=== PATIENT | female | born 1955 | race African-American/Black ===

== ENCOUNTER 2019-10-01 11:15 | Outpatient (CLI) | payer MEDICARE, SELFPAY ==
--- NOTE | ~2019-10-01 | US_ITS ---
EXAMINATION: US venous doppler [facility] EXAM DATE: 10/01/2019 11:40 INDICATION: Left leg pain and swelling. TECHNIQUE: Multiple grayscale, color flow and Doppler images of the left lower extremity deep venous system were obtained and reviewed. There is no prior study for comparison. FINDINGS: The left common femoral, femoral and profunda veins demonstrate normal color flow, respirat ory variation, augmentation and compressibility. Compressibility, color flow confirmed within the le ft popliteal, posterior tibial, peroneal, and greater saphenous veins. IMPRESSION: 1. No left lower extremity deep venous thrombosis. Reviewed, dictated and finalized at location B.
== END 2019-10-01 11:16 | disposition home or self-care (01) ==
PROVIDERS: PCP Internal Medicine; Visit Provider Internal Medicine
DX: M79.605 Pain in left leg (principal); M79.89 Other specified soft tissue disorders
CPT/HCPCS: 93971

== ENCOUNTER 2020-01-15 01:58 | Outpatient (CLI) | payer MEDICARE, SELFPAY ==
[2020-01-15 19:19] LABS: SARS-CoV-2 RNA PCR Negative
== END 2020-01-15 01:59 | disposition home or self-care (01) ==
LOC: ANHCOVIDDT 01:59
PROVIDERS: PCP Internal Medicine; Visit Provider Internal Medicine Critical Care Medicine
DX: Z01.812 Encounter for preprocedural laboratory examination (principal); Z20.828 Contact with and (suspected) exposure to other viral communicable diseases
CPT/HCPCS: 87635; C9803; U0003

== ENCOUNTER 2020-01-17 08:05 | Outpatient (CLI) | payer MEDICARE, SELFPAY ==
--- NOTE | 2020-02-07 09:23 | WPDSLEEPSTUD ---
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 This titration is to assure that she is at the correct pressure. Without using CPAP, she frequently snores and occasionally is loud enough that others complain without treatment. She rarely awakens at night with heartburn and belching or choking. She does not awaken from sleep feeling short of breath. She occasionally has trouble sleep with a cold, rarely wakes up gasping for breath at night. She occasionally has breathing problems at night observed by others. She occasionally sweats excessively at night. She does not knows her heart pounding or beating irregularly at night. She occasionally falls asleep during the day occasionally involuntarily. She does not fall asleep while driving. She does not fall asleep during physical effort. She does not have loss of muscle tone with strong emotion. She occasionally has daytime difficulties due to excessive sleepiness, Rarely feels paralyzed on waking or falling asleep. She occasionally has vivid dreamlike scenes upon awakening or falling asleep. She has never for a to go to sleep. She occasionally has nightmares occasionally remembers her dreams. She frequently has racing thoughts, feelings of sadness, depression and anxiety. She occasionally has muscular tension, notices parts of her body jerking, occasionally kicks at night occasionally has crawling and aching feelings in her legs and occasionally has leg pain at night. She really has morning jaw pain. She does not grind her teeth during sleep. She occasionally is bothered by pain during the day rarely is awakened by pain at night. She occasionally wakes up feeling stiff in the morning with sore achy muscles and pain in the neck and spine. She has fatigue, memory problems, insomnia, concentration difficulties and depression. Normal bedtime is between midnight and 2:00 a.m. taking 1-2 hours fall asleep, typically waking a few times at night. When she awakens she will lie in bed and wait until she falls asleep again. she does have nocturia and she does take diuretics. The patient occasionally naps. Sometimes a short nap is refreshing. She feels better in the afternoon compared to the morning. habits: Never smoked tobacco. Caffeine 2 cups a day and 2 sodas a day. No alcohol. [facility] Past Medical History Medical History (Updated 02/07/20 @ 10:44 by Harriet Lutz MD) Cardiomyopathy Essential (primary) hypertension Gout, unspecified Hyperglycemia Other fatigue Pure hypercholesterolemia Sleep apnea in adult Surgical History Surgical History (Updated 02/07/20 @ 09:31 by Harriet Lutz MD) S/P cardiac pacemaker procedure Family History Family History Mother Family history of Alzheimer's disease Father Patient's father is Sibling Hypertension Family history of arthritis Family history of heart disease in male family member before age 55, Onset Age: 54 Patient's sister is , Onset Age: 54 Social History Social History Smoking status: Never smoker Second hand tobacco smoke exposure: No Alcohol intake: current Substance use: never Medications Home Medications Medication Instructions Recorded Confirmed Type bupropion HCl 150 mg 24 hr tablet, 150 mg PO BID #60 tablet 04/30/19 Rx extended release escitalopram oxalate 5 mg tabl
[2020-02-07 10:49] VITALS: BMI 50.1
== END 2020-01-17 08:06 | disposition home or self-care (01) ==
LOC: ANHCSM 08:06
PROVIDERS: PCP Internal Medicine; Visit Provider Physician Assistant
DX: G47.33 Obstructive sleep apnea (adult) (pediatric) (principal)
CPT/HCPCS: 95811

== ENCOUNTER → 2020-11-25 11:54 | Outpatient (CLI) | payer MEDICARE, SELFPAY ==
--- NOTE | ~2020-11-25 | MM_ITS ---
EXAMINATION: MM screening [facility] BI w rigo HISTORY: Screening mammogram TECHNIQUE: Craniocaudal and mediolateral oblique 3-D tomosynthesis images were obtained and synthetic 2-D images were generated. CAD analysis was submitted and interpreted. COMPARISON: 01/02/2019, 10/04/2017, 03/23/2015 BREAST PARENCHYMAL COMPOSITION: There are scattered areas of fibroglandular density. FINDINGS: There is no evidence of suspicious mass, calcification, or architectural distortion to sugg est malignancy in either breast. There has been no suspicious interval change. IMPRESSION: 1. No mammographic evidence of malignancy. 2. Recommend routine screening mammography in one year. BI-RADS Category 1: Negative Reviewed, dictated and finalized at location D.
== END ==
PROVIDERS: PCP Internal Medicine; Visit Provider Obstetrics & Gynecology
DX: Z12.31 Encounter for screening mammogram for malignant neoplasm of breast (principal)
CPT/HCPCS: 77063; 77067

== ENCOUNTER 2021-02-16 01:14 | Day surgery (SDC) | payer MEDICARE, SELFPAY ==
[2021-01-28 14:16] VITALS: BMI 47.0
--- NOTE | 2021-02-16 09:31 | WPDANESEPPF ---
Anes - Initial Pre Proc Eval Procedure: Operation Date: 02/16/21 11:30 Proposed Procedures p Screening Colonoscopy - Rey Perez MD Date/Time: 02/16/21 09:31 Surgeon: Rey Perez MD Pre Op Diagnosis: neoplasm screening Patient Data Age: 65 Gender: F Height: 1.55 m Weight: 113 kg Allergies Allergy/AdvReac Type Severity Reaction Status Date / Time No Known Allergies Allergy Verified 02/16/21 10:16 Home Medications Medication Instructions Recorded Confirmed Type escitalopram oxalate 5 mg tablet 5 mg PO DAILY #30 tablet 04/30/19 01/28/21 Rx carvedilol 12.5 mg tablet 12.5 mg PO Q12H 03/23/20 01/28/21 History quinapril 40 mg tablet 40 mg PO DAILY 03/23/20 01/28/21 History potassium chloride 20 mEq 20 meq PO DAILY #90 tablet 07/08/20 01/28/21 Rx tablet,extended release allopurinol 300 mg tablet 300 mg PO DAILY #90 tablet 11/24/20 01/28/21 Rx ergocalciferol (vitamin D2) 1,250 50,000 unit PO WEEKLY #13 cap 01/04/21 01/28/21 Rx mcg (50,000 unit) capsule aspirin [Adult Aspirin] 81 mg PO DAILY 01/28/21 01/28/21 History atorvastatin 20 mg PO DAILY 01/28/21 01/28/21 History bupropion HCl 150 mg PO DAILY 01/28/21 01/28/21 History furosemide 40 mg PO DAILY 01/28/21 01/28/21 History omeprazole 20 mg PO BID PRN 01/28/21 01/28/21 History psyllium [Metamucil] 1 packet PO DAILY 01/28/21 01/28/21 History spironolactone 12.5 mg PO DAILY 01/28/21 01/28/21 History Patient hx anesthesia problems: none Family hx anesthesia problems: none Results Review: All pre-operative results and documents have been reviewed as part of the pre-operative evaluation. [facility] Past Medical History Medical History (Updated 02/16/21 @ 10:18 by Giacomo Choudhury MD) Arthritis Cardiomyopathy ef 20-25% Depression Essential (primary) hypertension Gout, unspecified Hyperglycemia Morbid obesity with BMI of 45.0-49.9, adult FERNANDO on CPAP Other fatigue Pure hypercholesterolemia Sleep apnea in adult Surgical History Surgical History (Updated 02/16/21 @ 10:18 by Giacomo Choudhury MD) AICD (automatic cardioverter/defibrillator) present S/P cardiac pacemaker procedure Family History Family History Mother Family history of Alzheimer's disease Father Patient's father is Sibling Hypertension Family history of arthritis Family history of heart disease in male family member before age 55, Onset Age: 54 Patient's sister is , Onset Age: 54 Social History Social History Smoking status: Never smoker Second hand tobacco smoke exposure: No Alcohol intake: current Drinks per week: 1 Alcohol use details: occasional Substance use: never Living arrangements: alone Spiritual care concerns: No Anes - Eval Final PreProcedure Day of Procedure 02/16/21 09:31 Patient weight: obese Heart: regular rate and rhythm Lungs: clear to auscultation and normal air movement Airway: Mallampati scale class II Neurological: alert and oriented Last oral intake: >/= 8 hours ASA classification: IV Emergent: no Anesthetic plan: proceed Anesthesia type and monitoring: general GIVS Results Review: All pre-operative results and documents have been reviewed as part of the pre-operative evaluation. Informed Consent: The patient's anesthetic plan and its attendant risks and benefits were discussed with the patient/family/POA. Questions were solicited and answers provided to the satisfaction of the patient/family/POA.
[2021-02-16 10:02] VITALS: BP 151/96; PULSE 84; RESP 18; TEMP 36.2; O2SAT 99; BMI 49.4
[2021-02-16] MEDS: LACTATED RINGERS 1,000 ML 150 ML IV CONT (10:39)
--- NOTE | 2021-02-16 10:51 | WPDGICN ---
Assessment and Plan Assessment and plan (1) Encounter for screening colonoscopy: Code(s): Z12.11 - Encounter for screening for malignant neoplasm of colon Status: Acute Assessment and Plan: Patient presents for screening colonoscopy. Further recommendations will be given after endoscopy. She appears to be at average risk for colon polyps. GI Consult Note Consult date/time: 02/16/21 10:51 HPI: Meliton Goodman is a 65 year old female Presents for screening colonoscopy. Patient's last colonoscopy was 10 years ago. Patient reports that her current weight appetite and bowel movements are normal. Patient denies abdominal pain. She has had no bleeding. Family history is noncontributory. Review of Systems Review of Systems: All systems reviewed & are unremarkable except as noted in HPI and below PMFSH Past Medical History Medical History (Updated 02/16/21 @ 10:52 by Rey Perez MD) Arthritis Cardiomyopathy ef 20-25% Depression Essential (primary) hypertension Gout, unspecified Hyperglycemia Morbid obesity with BMI of 45.0-49.9, adult FERNANDO on CPAP Other fatigue Pure hypercholesterolemia Sleep apnea in adult Surgical History Surgical History (Updated 02/16/21 @ 10:18 by Giacomo Choudhury MD) AICD (automatic cardioverter/defibrillator) present S/P cardiac pacemaker procedure Family History Family History Mother Family history of Alzheimer's disease Father Patient's father is Sibling Hypertension Family history of arthritis Family history of heart disease in male family member before age 55, Onset Age: 54 Patient's sister is , Onset Age: 54 Social History Social History Smoking status: Never smoker Second hand tobacco smoke exposure: No Alcohol intake: current Drinks per week: 1 Alcohol use details: occasional Substance use: never Living arrangements: alone Spiritual care concerns: No Meds Home Medications and Allergies Home Medications Medication Instructions Recorded Confirmed Type escitalopram oxalate 5 mg tablet 5 mg PO DAILY #30 tablet 04/30/19 02/16/21 Rx carvedilol 12.5 mg tablet 12.5 mg PO Q12H 03/23/20 02/16/21 History quinapril 40 mg tablet 40 mg PO DAILY 03/23/20 02/16/21 History potassium chloride 20 mEq 20 meq PO DAILY #90 tablet 07/08/20 02/16/21 Rx tablet,extended release allopurinol 300 mg tablet 300 mg PO DAILY #90 tablet 11/24/20 02/16/21 Rx ergocalciferol (vitamin D2) 1,250 50,000 unit PO WEEKLY #13 cap 01/04/21 02/16/21 Rx mcg (50,000 unit) capsule aspirin [Adult Aspirin] 81 mg PO DAILY 01/28/21 02/16/21 History atorvastatin 20 mg PO DAILY 01/28/21 02/16/21 History bupropion HCl 150 mg PO DAILY 01/28/21 02/16/21 History furosemide 40 mg PO DAILY 01/28/21 02/16/21 History omeprazole 20 mg PO BID PRN 01/28/21 02/16/21 History psyllium [Metamucil] 1 packet PO DAILY 01/28/21 02/16/21 History spironolactone 12.5 mg PO DAILY 01/28/21 02/16/21 History Allergies Allergy/AdvReac Type Severity Reaction Status Date / Time No Known Allergies Allergy Verified 02/16/21 10:16 Vital Signs Vital Signs - 24 hr 02/16/21 10:02 Temperature 97.2 F L Pulse Rate 84 Respiratory Rate 18 Blood Pressure 151/96 H Pulse Oximetry 99 Exam Narrative: Physical exam reveals patient be alert. Vital signs are stable. HEENT exam is unremarkable. Patient is anicteric. Lungs are clear to auscultation and percussion. Heart is without murmur or extra sounds. Abdomen is obese. Bowel sounds are present soft nontender with no organomegaly. Digital external rectal exam is normal.
[2021-02-16 11:26] VITALS: BP 102/68; PULSE 76; RESP 14; O2SAT 100
[2021-02-16 11:36] VITALS: BP 104/63; PULSE 76; RESP 14; O2SAT 98
[2021-02-16 11:46] VITALS: BP 106/71; PULSE 75; RESP 19; O2SAT 99
== END 2021-02-16 12:00 | disposition home or self-care (01) ==
PROVIDERS: PCP Internal Medicine; Visit Provider Internal Medicine Gastroenterology
PROC: 0DJD8ZZ Inspection of Lower Intestinal Tract, Via Natural or Artificial Opening Endoscopic (ICD-10-PCS; CPT 45378; principal; 2021-02-16 11:30)
DX: Z12.11 Encounter for screening for malignant neoplasm of colon (principal); K62.1 Rectal polyp; K64.8 Other hemorrhoids; K57.30 Diverticulosis of large intestine without perforation or abscess without bleeding; I42.9 Cardiomyopathy, unspecified; I10 Essential (primary) hypertension; E78.00 Pure hypercholesterolemia, unspecified; G47.33 Obstructive sleep apnea (adult) (pediatric); F32.9 Major depressive disorder, single episode, unspecified; Z79.82 Long term (current) use of aspirin; Z95.810 Presence of automatic (implantable) cardiac defibrillator; E66.01 Morbid (severe) obesity due to excess calories; Z68.42 Body mass index [BMI] 45.0-49.9, adult
CPT/HCPCS: 45385; 88305; J2704; J7120

== ENCOUNTER → 2021-12-01 12:31 | Outpatient (CLI) | payer MEDICARE, SELFPAY ==
--- NOTE | ~2021-12-01 | MM_ITS ---
EXAMINATION: MM screening [facility] BI w rigo HISTORY: Screening TECHNIQUE: Craniocaudal and mediolateral oblique 3-D tomosynthesis images were obtained and synthetic 2-D images were generated. CAD analysis was submitted and interpreted. COMPARISON: Comparison to multiple prior studies sequentially, with oldest reviewed study dated 10/2012. BREAST PARENCHYMAL COMPOSITION: There are scattered areas of fibroglandular density. FINDINGS: There is no evidence of suspicious mass, calcification, or architectural distortion to sugg est malignancy in either breast. There has been no suspicious interval change. IMPRESSION: 1. No mammographic evidence of malignancy. 2. Recommend routine screening mammography in one year. BI-RADS Category 1: Negative Reviewed, dictated and finalized at location A.
== END ==
PROVIDERS: PCP Internal Medicine; Visit Provider Obstetrics & Gynecology
DX: Z12.31 Encounter for screening mammogram for malignant neoplasm of breast (principal)
CPT/HCPCS: 77063; 77067

== ENCOUNTER → 2022-12-14 12:13 | Outpatient (CLI) | payer MEDICARE, SELFPAY ==
--- NOTE | ~2022-12-14 | MM_ITS ---
EXAMINATION: MM screening [facility] BI w rigo HISTORY: Screening mammogram TECHNIQUE: Craniocaudal and mediolateral oblique 3-D tomosynthesis images were obtained and synthetic 2-D images were generated. CAD analysis was submitted and interpreted. COMPARISON: 11/27/2021, 11/25/2020, 01/02/2019 bilateral screening mammogram examinations. BREAST PARENCHYMAL COMPOSITION: There are scattered areas of fibroglandular density. FINDINGS: There is no evidence of suspicious mass, calcification, or architectural distortion to sugg est malignancy in either breast. There has been no suspicious interval change. IMPRESSION: 1. No mammographic evidence of malignancy. 2. Recommend routine screening mammography in one year. BI-RADS Category 1: Negative Reviewed, dictated and finalized at location A.
== END ==
PROVIDERS: PCP Internal Medicine; Visit Provider Internal Medicine
DX: Z12.31 Encounter for screening mammogram for malignant neoplasm of breast (principal)
CPT/HCPCS: 77063; 77067

== ENCOUNTER 2023-07-11 16:01 | Outpatient (CLI) | payer MEDICARE, SELFPAY ==
--- NOTE | ~2023-07-11 | XR_ITS ---
XR knee RT 3V DATE: 07/11/2023 16:16 INDICATION: Pain TECHNIQUE: Buhler and standing AP and lateral COMPARISON: None FINDINGS: There is moderately prominent loss of medial compartment joint space height. There is mild periarticular spurring at the medial and patellofemoral compartments. No fracture or dislocation or joint effusion, radiopaque intra-articular loose body or chondrocalcino sis. No periosteal reaction or bone destruction. IMPRESSION: Osteoarthritis involving the medial compartment particularly Reviewed, dictated and finalized at location B.
== END 2023-07-11 16:02 ==
PROVIDERS: PCP Physician Assistant; Visit Provider Physician Assistant
DX: M17.11 Unilateral primary osteoarthritis, right knee (principal)
CPT/HCPCS: 73562

== ENCOUNTER 2023-12-18 07:06 | Outpatient (CLI) | payer MEDICARE, SELFPAY ==
--- NOTE | ~2023-12-18 | MM_ITS ---
EXAMINATION: MM screening [facility] BI w rigo HISTORY: Screening mammogram TECHNIQUE: Craniocaudal and mediolateral oblique 3-D tomosynthesis images were obtained and synthetic 2-D images were generated. CAD analysis was submitted and interpreted. COMPARISON: 12/14/2022, 12/01/2021, 11/25/2020, 01/02/2019 BREAST PARENCHYMAL COMPOSITION:Not Dense. There are scattered areas of fibroglandular density. FINDINGS: No suspicious mass, calcification, or architectural distortion are identified in either lester ast to suggest malignancy. There has been no suspicious interval change. IMPRESSION: No mammographic evidence of malignancy. Recommend routine screening mammography in one year. BI-RADS Category 1: Negative Reviewed, dictated and finalized at location .
== END 2023-12-18 07:07 | disposition home or self-care (01) ==
PROVIDERS: PCP Internal Medicine; Visit Provider Internal Medicine
DX: Z12.31 Encounter for screening mammogram for malignant neoplasm of breast (principal)
CPT/HCPCS: 77063; 77067

== ENCOUNTER 2025-02-05 12:19 | Emergency (ER) | payer MEDICARE, SELFPAY ==
[2025-02-05 12:36] VITALS: BP 108/73; PULSE 82; RESP 16; TEMP 36.8; O2SAT 96
--- NOTE | 2025-02-05 13:03 | ED.EAR ---
HPI - Ear Problem General Chief complaint: Ear Stated complaint: Ear Pain/Back Pain/Neck Pain Time Seen by Provider: 02/05/25 13:03 Source: patient Mode of arrival: ambulatory Limitations: no limitations History of Present Illness HPI Narrative: 69-year-old female presents with complaint of bilateral ear pain. Worse to right ear. No hearing changes. Patient reports chronic sinusitis. ?always congested ?. Does not taking daily antihistamine. Intermittently uses Benadryl. Patient also reports aching into neck and shoulders. ?I think it's arthritis ?. Denies injury. Afebrile. Denies cough, No chest pain or shortness breath. All systems reviewed and negative except as noted above. Related Data Home Medications ?Medication ?Instructions ?Recorded ?Confirmed ?Last Taken ?Type carvedilol 12.5 mg tablet 12.5 mg PO Q12H 03/23/20 09/11/24 Unknown History quinapril 40 mg tablet 40 mg PO DAILY 03/23/20 09/11/24 Unknown History aspirin 81 mg tablet 81 mg PO DAILY 01/28/21 09/11/24 Unknown History atorvastatin 20 mg tablet 20 mg PO DAILY 01/28/21 09/11/24 Unknown History bupropion HCl 150 mg 24 hr tablet, 150 mg PO DAILY 01/28/21 09/11/24 Unknown History extended release furosemide 40 mg tablet 40 mg PO DAILY 01/28/21 09/11/24 Unknown History psyllium 1 packet PO DAILY 01/28/21 09/11/24 Unknown History spironolactone 25 mg tablet 12.5 mg PO DAILY 01/28/21 09/11/24 Unknown History trazodone 50 mg tablet 50 mg PO QHS PRN 07/20/22 09/11/24 Unknown History rivaroxaban 20 mg tablet (Xarelto) 20 mg PO DAILY 09/11/24 09/11/24 Unknown History amiodarone 200 mg tablet mg 02/05/25 Unknown History lisinopril 40 mg tablet mg 02/05/25 Unknown History Allergies Allergy/AdvReac Type Severity Reaction Status Date / Time fexofenadine (From Shayla) AdvReac Intermediate Tongue Verified 09/11/24 09:40 swelling loratadine (From Claritin) AdvReac Intermediate Tongue Verified 09/11/24 09:40 swelling PMFSH Past Medical History Medical History (Updated 02/05/25 @ 13:14 by Brittney Goodman APRN) Essential (primary) hypertension Hyperglycemia Vertigo Rheumatoid factor positive PVCs (premature ventricular contractions) Other abnormal glucose Otalgia of left ear Gastro-esophageal reflux disease without esophagitis Dorsalgia DISH (diffuse idiopathic skeletal hyperostosis) Annual physical exam Depression Arthritis FERNANDO on CPAP Morbid obesity with BMI of 45.0-49.9, adult Cardiomyopathy ef 20-25% Gout, unspecified Other fatigue Pure hypercholesterolemia Sleep apnea in adult Surgical History Surgical History AICD (automatic cardioverter/defibrillator) present S/P cardiac pacemaker procedure Family History Family History (Updated 09/11/24 @ 13:41 by LEAH Hernandez) Mother Family history of Alzheimer's disease Hypertension Father Acute myocardial infarction, Onset Age: 39 Sibling Hypertension Family history of arthritis Heart disease Sibling Hypertension Social History Social History (Updated 09/11/24 @ 13:42 by LEAH Hernandez) Smoking status: Never smoker Second hand tobacco smoke exposure: No Alcohol intake: current Drinks per week: 1 Alcohol use details: occasional Substance use: never Substance use type: does not use Do You Feel Safe in your Home?: Yes Lack of Transportation: No Lack of Food: Never True Current Housing: I Have Housing Concerned About Future Housing: No Difficulty Paying Gas/Electric Bills: Decline to Answer Difficulty Paying for Meds: No Currently Unemployed: Decline to Answer Education: Trade/Vocational Certificate Difficulty w/ Childcare or Family Care: No Living arrangements: with family Occupation/Education: retired Additional occupation/education comments: [employer] Gender identity (if verbalized by the patient): Female Spiritual care concerns: No Comments At time of signature, agree with nursing past medical, surgical, social and family history. There is no relevant family history pertinent to the presenting complaint. Exam Narrative: GENERAL: This is a well-nourished, well-developed patient, in no apparent distress. HEAD: normocephalic, atraumatic. EYES: PERRL. Sclera clear/white. Vision is grossly intact. EARS: External ears normal, auditory canals clear and without drainage, fluid bilateral TMs with dull light reflex, left TM is erythematous and bulging. No perforation bilaterally. Hearing grossly intact. NOSE: External nose normal with congestion, clear nasal drainage, erythema and swelling to bilateral nares THROAT: Mucous membranes moist, erythematous r with post nasal drainage. No swelling or exudates NECK: Neck supple, non-tender without lymphadenopathy, masses or thyromegaly. CARDIOVASCULAR: Regular rate and rhythm without murmurs, gallops, or rubs. RESPIRATORY: Clear to auscultation. Breath sounds equal bilaterally. No wheezes, rales, or rhonchi. SKIN: warm, Dry, intact with no suspicious lesions or rash, good texture and turgor. NEURO: awake, alert, and oriented to person, place and time. There were no obvious focal neurologic abnormalities. MUSCULOSKELETAL: Generalized muscular tenderness to upper back and neck. Normal range of motion. Course Course Level of Care: Express Care Visit Vital Signs Vital signs: Vital Signs Temperature 36.8 C 02/05/25 12:36 Pulse Rate 82 02/05/25 12:36 Respiratory Rate 16 02/05/25 12:36 Blood Pressure 108/73 02/05/25 12:36 Pulse Oximetry 96 02/05/25 12:36 Temperature 36.8 C 02/05/25 12:36 Pulse Rate 82 02/05/25 12:36 Respiratory Rate 16 02/05/25 12:36 Blood Pressure 108/73 02/05/25 12:36 Pulse Oximetry 96 02/05/25 12:36 Reviewed Medical Decision Making MDM Narrative Medical decision making narrative: Will treat left otitis media with antibiotic. Prescribed Claritin and Flonase for chronic sinusitis. Will treat arthralgia with Medrol Dosepak. Recommend follow-up primary care physician. Patient is well-appearing, nontoxic. Vital Signs Vital Signs: Vital Signs Temperature 36.8 C 02/05/25 12:36 Pulse Rate 82 02/05/25 12:36 Respiratory Rate 16 02/05/25 12:36 Blood Pressure 108/73 02/05/25 12:36 Pulse Oximetry 96 02/05/25 12:36 Temperature 36.8 C 02/05/25 12:36 Pulse Rate 82 02/05/25 12:36 Respiratory Rate 16 02/05/25 12:36 Blood Pressure 108/73 02/05/25 12:36 Pulse Oximetry 96 02/05/25 12:36 Discharge Plan Discharge Clinical Impression: Acute left otitis media, Acute serous otitis media of right ear, Chronic sinusitis, Arthralgia of neck Patient Disposition: Home Condition: Stable Instructions: Antibiotic Form, Ear Infection (ED), Arthralgia (ED) Additional Instructions: Take medications as prescribed. Start an [id number] antihistamine such as Claritin or Zyrtec. Drink at least 64 oz water a day. Tylenol every 6-8 hours as needed for your pain. Follow-up with your primary care physician at scheduled appointment. Patient Language: Azeri Prescriptions: New amoxicillin 875 mg tablet 875 mg PO Q12H 10 Days Qty: 20 0RF fluticasone propionate [Flonase Allergy Relief] 50 mcg/actuation spray,suspension 1 spray intranasal BID Qty: 16 0RF Rx Instructions: administer into each nostril prednisone 20 mg tablet 40 mg PO DAILY 5 Days Qty: 10 0RF No Action amiodarone 200 mg tablet lisinopril 40 mg tablet trazodone 50 mg tablet 50 mg PO QHS PRN Xarelto 20 mg tablet 20 mg PO DAILY Rx Instructions: must administer with evening meal furosemide 40 mg tablet 40 mg PO DAILY atorvastatin 20 mg tablet 20 mg PO DAILY Metamucil Packet 1 packet PO DAILY spironolactone 25 mg tablet 12.5 mg PO DAILY Adult Aspirin 81 mg Tablet 81 mg PO DAILY bupropion HCl 150 mg tablet extended release 24 hr 150 mg PO DAILY escitalopram oxalate 5 mg tablet 5 mg PO DAILY Qty: 30 1RF quinapril 40 mg tablet 40 mg PO DAILY carvedilol 12.5 mg tablet 12.5 mg PO Q12H Rx Instructions: must administer with a meal/food manager infrastructure allopurinol 300 mg tablet 300 mg PO DAILY Qty: 90 2RF folic acid 1 mg tablet 1 mg PO DAILY Qty: 100 3RF omeprazole 20 mg capsule,delayed release(DR/EC) See Rx Instructions .ROUTE .COMPLEX Qty: 200 2RF Dose Instruction: TAKE 1 CAPSULE BY MOUTH TWICE DAILY FOR INDIGESTION Rx Instructions: TAKE 1 CAPSULE BY MOUTH TWICE DAILY FOR INDIGESTION potassium chloride 20 mEq tablet,ER particles/crystals See Rx Instructions .ROUTE .COMPLEX Qty: 100 2RF Dose Instruction: TAKE 1 TABLET BY MOUTH DAILY Rx Instructions: TAKE 1 TABLET BY MOUTH DAILY ergocalciferol (vitamin D2) 1,250 mcg (50,000 unit) capsule 50,000 unit PO MONTHLY Qty: 4 3RF Rx Instructions: NOTE NEW INSTRUCTIONS Follow-up/Referrals: Donald Doyle APRN [Primary Care Provider, Internal Medicine] Time of Disposition: 13:14
== END 2025-02-05 13:22 | disposition home or self-care (01) ==
PROVIDERS: Emergency Provider Nurse Practitioner Family; PCP Nurse Practitioner
DX: H66.92 Otitis media, unspecified, left ear (principal); H65.01 Acute serous otitis media, right ear; J32.9 Chronic sinusitis, unspecified; M54.2 Cervicalgia; I10 Essential (primary) hypertension; M19.90 Unspecified osteoarthritis, unspecified site; G47.33 Obstructive sleep apnea (adult) (pediatric); E66.01 Morbid (severe) obesity due to excess calories; Z68.44 Body mass index [BMI] 60.0-69.9, adult; I42.9 Cardiomyopathy, unspecified; M10.9 Gout, unspecified; E78.00 Pure hypercholesterolemia, unspecified; Z95.810 Presence of automatic (implantable) cardiac defibrillator
CPT/HCPCS: 99213; G0463